=== PATIENT | male | born 1955 | race Caucasian/White ===

== ENCOUNTER 2017-11-09 10:28 | Outpatient (CLI) | payer OTHER ==
[2017-11-09 11:44] LABS: *BILIRUBIN,URIN NEGATIVE (NEGATIVE); *BLOOD, URINE Trace-intact (NEGATIVE); *CLARITY,URINE SLIGHTLY CLOUDY (CLEAR); *COLOR,URINE YELLOW (YELLOW); *KETONES,URINE NEGATIVE (NEGATIVE); *PROTEIN,URINE 1+ (NEGATIVE); *UROBILINOGEN,URINE 0.2 E.U./dl (NORMAL); LEUKOCYTE ESTERASE ,URINE 1+ (NEGATIVE); NITRITE, URINE NEGATIVE (NEGATIVE); PH,URINE 6.5 (5.0-8.0); UGLUCOSE NEGATIVE (NEGATIVE)
[2017-11-09 11:49] LABS: CREATININE 1.4 mg/dL (0.6-1.3); POTASSIUM 3.7 mmol/L (3.5-5.1)
[2017-11-09 11:58] LABS: BASOPHILS # (AUTO) 0.1 K/uL (0.0-8.0); BASOPHILS % (AUTO) 1.2 % (0.0-2.0); EOSINOPHILS # (AUTO) 0.3 K/uL (0.0-0.7); EOSINOPHILS % (AUTO) 2.9 % (0.0-7.0); HEMATOCRIT 40.5 % (36.7-47.1); HEMOGLOBIN 13.1 g/dL (12.5-16.3); LYMPHOCYTES # (AUTO) 2.3 K/uL (20.0-40.0); LYMPHOCYTES % (AUTO) 24.8 % (20.5-51.5); MEAN CORPUSCULAR HEMOGLOBIN 20.6 uug (23.8-33.4); MEAN CORPUSCULAR HGB CONC 32 g/dL (32.5-36.3); MEAN CORPUSCULAR VOLUME 63.7 fL (73.0-96.2); MONOCYTES # (AUTO) 0.7 K/uL (2.0-10.0); MONOCYTES % (AUTO) 7.1 % (0.0-11.0); PLATELET COUNT (AUTO) 236 K/uL (152-348); RED BLOOD CELL COUNT(AUTO) 6.35 MIL/uL (4.06-5.63); WHITE BLOOD COUNT (AUTO) 9.4 K/uL (3.6-10.2)
[2017-11-09 12:09] LABS: BACTERIA,URINE FEW /HPF (NONE SEEN); SQUAMOUS EPITHELIAL CELL,UR FEW /HPF (NONE SEEN)
== END 2017-11-09 23:59 | disposition home or self-care (01) ==
LOC: LAB 10:28
PROVIDERS: ATTEND Internal Medicine
DX: Z01.818 Encounter for other preprocedural examination (principal); S83.281A Other tear of lateral meniscus, current injury, right knee, initial encounter; S83.241A Other tear of medial meniscus, current injury, right knee, initial encounter; I70.0 Atherosclerosis of aorta; E11.9 Type 2 diabetes mellitus without complications; M47.894 Other spondylosis, thoracic region; X58.XXXA Exposure to other specified factors, initial encounter; Y93.89 Activity, other specified; Y92.89 Other specified places as the place of occurrence of the external cause; Y99.8 Other external cause status
CPT/HCPCS: 36415; 71045; 80048; 81001; 83036; 85025; 85730; 93005; A4663

== ENCOUNTER 2018-02-11 07:01 | Day surgery (SDC) | payer OTHER ==
[2018-02-11] MEDS ORDERED: CEFAZOLIN 1 G VIAL MC ONE (07:02)
[2018-02-11] MEDS ORDERED: DEXAMETHASONE SOD PHOSPHATE 4 MG INJ IV ONE (07:02)
[2018-02-11] MEDS ORDERED: PIGGYBACK IV ONE (07:02)
[2018-02-11] MEDS ORDERED: LIDOCAINE HCL 1% 20 ML VIAL MC ONE (07:02)
[2018-02-11] MEDS ORDERED: POTASSIUM CHLORIDE 10 MEQ/50 ML IV ONE (07:02)
[2018-02-11] MEDS ORDERED: IV NORMAL SALINE 1000 ML BAG IV ONE (07:02)
[2018-02-11] MEDS ORDERED: SEVOFLURANE 250 ML BOTTLE IH ONE (07:02)
[2018-02-11] MEDS ORDERED: GLYCOPYRROLATE 0.2 MG/ML VIAL MC ONE (07:02)
[2018-02-11] MEDS ORDERED: PROPOFOL 200 MG/20 ML BOTTLE IV ONE (07:02)
[2018-02-11] MEDS ORDERED: MORPHINE SULFATE PF 10 MG/10 ML AMPUL IV ONE (07:06)
[2018-02-11] MEDS ORDERED: BUPIVACAINE 0.25% 30 ML VIAL ONE (07:07)
[2018-02-11] MEDS ORDERED: FENTANYL CITRATE 100 MCG/2 ML AMPUL ONE (08:37)
[2018-02-11] MEDS ORDERED: KETOROLAC TROMETHAMINE 30 MG INJ ONE (10:52)
[2018-02-11] MEDS ORDERED: HYDROMORPHONE 2 MG/1 ML DISP.SYRIN ONE (11:03)
[2018-02-11] MEDS ORDERED: HYDROCODONE/APAP 5-325MG TABLET ONE (11:17)
== END 2018-02-11 12:15 | disposition home or self-care (01) ==
LOC: DS 07:01
PROVIDERS: ATTEND Orthopaedic Surgery
DX: M23.211 Derangement of anterior horn of medial meniscus due to old tear or injury, right knee (principal); M23.241 Derangement of anterior horn of lateral meniscus due to old tear or injury, right knee; M94.261 Chondromalacia, right knee; M65.861 Other synovitis and tenosynovitis, right lower leg; E11.9 Type 2 diabetes mellitus without complications; I10 Essential (primary) hypertension; G47.30 Sleep apnea, unspecified; Z79.899 Other long term (current) drug therapy; F41.9 Anxiety disorder, unspecified; F32.9 Major depressive disorder, single episode, unspecified; Z98.890 Other specified postprocedural states; Z88.8 Allergy status to other drugs, medicaments and biological substances; G89.29 Other chronic pain; M19.90 Unspecified osteoarthritis, unspecified site; I70.0 Atherosclerosis of aorta; E66.9 Obesity, unspecified
CPT/HCPCS: 29876; 29880; 36415; 82962 ×2; 84132; A4663; J0690; J1100; J1170; J1885; J2274; J3010; J3480; J3490 ×4; J7030 ×2